=== PATIENT | male | born 1995 | race Caucasian/White ===

== ENCOUNTER → 2018-06-10 14:44 | Outpatient (CLI) | payer OTHER, SELFPAY ==
[2018-06-13 12:44] LABS: HSV 1 IgM Screen Negative (Negative); HSV 2 IgM Screen Negative (Negative)
== END ==
PROVIDERS: Visit Provider Physician Assistant
DX: Z11.3 Encounter for screening for infections with a predominantly sexual mode of transmission (principal)
CPT/HCPCS: 36415; 86694

== ENCOUNTER → 2018-08-31 10:44 | Outpatient (CLI) | payer OTHER, SELFPAY ==
[2018-08-31 12:56] LABS: Urine N gonorrhoeae NOT DETECTED
[2018-08-31 13:06] LABS: Urine Chlamydia NOT DETECTED
== END ==
PROVIDERS: Visit Provider Physician Assistant
DX: R35.0 Frequency of micturition (principal)
CPT/HCPCS: 87491; 87591

== ENCOUNTER → 2019-02-19 11:38 | Outpatient (CLI) | payer OTHER, SELFPAY ==
[2019-02-19 14:28] LABS: Urine N gonorrhoeae NOT DETECTED
[2019-02-19 15:13] LABS: Urine Chlamydia NOT DETECTED
[2019-02-19 15:24] LABS: Hepatitis B Surface Antigen NEGATIVE s/c (NEGATIVE)
[2019-02-19 15:49] LABS: HIV 1 & 2 Ab/Ag 4th Gen Combo NEGATIVE (NEGATIVE); Hep C Virus Ab w/Reflex Quant NEGATIVE s/c (NEGATIVE)
[2019-02-22 20:48] LABS: RPR Screen Nonreactive (Nonreactive)
[2019-02-23 13:38] LABS: HSV 1 IgM Screen Negative (Negative); HSV 2 IgM Screen Negative (Negative)
== END ==
PROVIDERS: Visit Provider Nurse Practitioner
DX: Z11.3 Encounter for screening for infections with a predominantly sexual mode of transmission (principal)
CPT/HCPCS: 36415; 86592; 86695; 86696; 86803; 87255; 87340; 87389; 87491; 87591